=== PATIENT | male | born 1985 | race Caucasian/White ===

== ENCOUNTER 2023-12-30 21:44 | Inpatient (IN) | payer BC ==
[~2023-12-30] VITALS: Ht 160 cm; Wt 66.6 kg
[2023-12-30] MEDS ORDERED: IOHEXOL-300 100 ML VIAL IV ONE (22:57)
[2023-12-30] MEDS ORDERED: IV NS 0.9% 500 ML IV ONE (22:58)
[2023-12-30] MEDS: TRANEXAMIC ACID IV ONE (23:00)
[2023-12-30] MEDS: NS 0.9% IV ONE (23:00)
[2023-12-30 23:01] LABS: BASOPHILS # (AUTO) 0.1 K/uL (0.0-0.2); BASOPHILS % (AUTO) 1.1 % (0.0-2.0); EOSINOPHILS # (AUTO) 0.2 K/uL (0.0-0.7); EOSINOPHILS % (AUTO) 2.6 % (0.0-6.0); HEMATOCRIT 41 % (39-51); LYMPHOCYTES # (AUTO) 1.8 K/uL (0.8-4.8); LYMPHOCYTES % (AUTO) 29.5 % (20.0-44.0); MEAN CORPUSCULAR HEMOGLOBIN 31 PG (26.0-33.0); MEAN CORPUSCULAR HGB CONC 35 g/dl (31.0-36.0); MEAN CORPUSCULAR VOLUME 90 fL (80-96); MONOCYTES # (AUTO) 0.6 K/uL (0.1-1.30); MONOCYTES % (AUTO) 9.4 % (2.0-12.0); NEUTROPHILS # (AUTO) 3.5 K/uL (1.8-8.9); NEUTROPHILS % (AUTO) 57.4 % (43.0-81.0); PLATELET COUNT (AUTO) 218 K/uL (150-450); RED BLOOD CELL COUNT(AUTO) 4.53 MIL/uL (4.5-6.0); RED CELL DISTRIBUTION WIDTH 12.7 % (11.5-15.0); WHITE BLOOD COUNT (AUTO) 6.2 K/uL (4.3-11.0)
[2023-12-30 23:13] LABS: INR 1.09 (0.91-1.10); PARTIAL THROMBOPLASTIN TIME 25.6 SEC (24.3-34.3); PROTHROMBIN TIME 11.5 SECS (9.2-11.1)
[2023-12-30 23:23] LABS: ALBUMIN 3.4 g/dL (3.4-5.0); BILIRUBIN,DIRECT 0.1 mg/dL (0.0-0.2); BILIRUBIN,TOTAL 0.2 mg/dL (0.2-1.0); CALCIUM, SERUM 8.4 mg/dL (8.5-10.1); POTASSIUM 3.6 mmol/L (3.5-5.1); TOTAL PROTEIN, SERUM 6.3 g/dL (6.4-8.2)
[2023-12-31] MEDS ORDERED: ONDANSETRON HCL/PF 4 MG/2 ML VIAL IVP PRN (01:30)
[2023-12-31] MEDS ORDERED: MAGNESIUM HYDROXIDE 30 ML UDC PO PRN (01:30)
[2023-12-31] MEDS ORDERED: Z GUARD REMEDY 4 OZ OINT TP PRN (01:30)
[2023-12-31] MEDS ORDERED: MAG HYDROX/AL HYDROX/SIMETH 30 ML UDC PO PRN (01:30)
[2023-12-31] MEDS: IV NS 0.9% 1,000 ML IV SCH (03:46)
[2023-12-31 07:30] VITALS: BP 110/65; TEMP 97.7; O2SAT 100
[2023-12-31] MEDS: IV NS 0.9% 1,000 ML IV PRN (11:52)
[2023-12-31 13:48] LABS: HEMOGLOBIN 12.8 g/dL (13.5-17.5)
[2023-12-31 16:00] VITALS: BP 117/70; TEMP 98.4; O2SAT 99
[2023-12-31] MEDS: ACETAMINOPHEN 325 MG TABLET PO PRN (17:35)
[2023-12-31 19:09] LABS: HEMOGLOBIN 12.5 g/dL (13.5-17.5)
[2023-12-31 20:00] VITALS: BP 120/71; TEMP 99.5; O2SAT 100
[2024-01-01 03:40] LABS: BASOPHILS % (AUTO) 0.6 % (0.0-2.0); EOSINOPHILS # (AUTO) 0.1 K/uL (0.0-0.7); EOSINOPHILS % (AUTO) 1.4 % (0.0-6.0); HEMATOCRIT 37 % (39-51); HEMOGLOBIN 12.8 g/dL (13.5-17.5); LYMPHOCYTES % (AUTO) 25.8 % (20.0-44.0); MEAN CORPUSCULAR HEMOGLOBIN 31 PG (26.0-33.0); MEAN CORPUSCULAR HGB CONC 34 g/dl (31.0-36.0); MEAN CORPUSCULAR VOLUME 90 fL (80-96); MONOCYTES # (AUTO) 0.6 K/uL (0.1-1.30); MONOCYTES % (AUTO) 8.2 % (2.0-12.0); PLATELET COUNT (AUTO) 239 K/uL (150-450); RED BLOOD CELL COUNT(AUTO) 4.15 MIL/uL (4.5-6.0); RED CELL DISTRIBUTION WIDTH 13.2 % (11.5-15.0); WHITE BLOOD COUNT (AUTO) 7.8 K/uL (4.3-11.0)
[2024-01-01 03:54] LABS: CALCIUM, SERUM 8.8 mg/dL (8.5-10.1); CREATININE 0.8 mg/dL (0.6-1.3); MAGNESIUM 1.7 mg/dL (1.8-2.4); PHOSPHORUS 3.4 mg/dL (2.5-4.9); POTASSIUM 4.4 mmol/L (3.5-5.1)
[2024-01-01 07:00] VITALS: BP 111/77; TEMP 98.4; O2SAT 100
[2024-01-01] MEDS: MAGNESIUM OXIDE 400 MG TABLET PO ONE (10:43)
[2024-01-01 11:41] LABS: APPEARANCE,URINE SLIGHTLY CLOUDY (CLEAR); BILIRUBIN,URINE NEGATIVE (NEGATIVE); BLOOD, URINE 3+ Ery/uL (NEGATIVE); COLOR,URINE RED (YELLOW); KETONES,URINE NEGATIVE (NEGATIVE); LEUKOCYTE ESTERASE ,URINE NEGATIVE (NEGATIVE); NITRITE, URINE NEGATIVE (NEGATIVE); PROTEIN,URINE NEGATIVE (NEGATIVE); UGLUCOSE NEGATIVE (NEGATIVE); UROBILINOGEN,URINE 0.2 EU/dL (0.2)
[2024-01-01 11:50] LABS: ADD URINE CULTURE NO; BACTERIA,URINE None seen /HPF (None Seen); RBC,URINE TOO NUMEROUS TO COUN /HPF (0-2); SQUAMOUS EPITHELIAL CELL,UR None Seen /HPF (None Seen); WBC,URINE NONE SEEN /HPF (0-3)
[2024-01-01] MEDS ORDERED: CIPR-262 PO (12:15)
== END 2024-01-01 12:50 | disposition home or self-care (01) | DRG 699 ==
LOC: ER 21:56 → MED 12-31 02:36
PROVIDERS: ADMIT Internal Medicine; ATTEND Internal Medicine
DX: T83.83XA Hemorrhage due to genitourinary prosthetic devices, implants and grafts, initial encounter (principal); N30.01 Acute cystitis with hematuria; Z87.81 Personal history of (healed) traumatic fracture; Z98.1 Arthrodesis status; Y84.6 Urinary catheterization as the cause of abnormal reaction of the patient, or of later complication, without mention of misadventure at the time of the procedure; Y92.009 Unspecified place in unspecified non-institutional (private) residence as the place of occurrence of the external cause
CPT/HCPCS: 36415; 80048-TC; 80076-TC; 81001; 83735-TC; 84100-TC; 85025-TC; 85027-TC; 85730-TC; 86850-TC; 87086-TC; A4217; A4223; G0378; J7030; J7040; Q9967

== ENCOUNTER 2024-01-05 08:55 | Emergency (ER) | payer BC ==
[~2024-01-05] VITALS: Ht 170.2 cm; Wt 64.9 kg
[~2024-01-05 08:55] MED LIST: CIPR-262 PO
[2024-01-05 09:03] VITALS: BP 120/76; TEMP 98.9
[2024-01-05 09:21] VITALS: O2SAT 100
== END 2024-01-05 09:22 | disposition home or self-care (01) ==
LOC: ER 08:55
DX: Z46.6 Encounter for fitting and adjustment of urinary device (principal); Z98.890 Other specified postprocedural states